=== PATIENT | male | born 1965 | race Caucasian/White ===

== ENCOUNTER 2016-07-08 15:47 | Inpatient (IN) | payer MEDICARE, OTHER, MEDICAID ==
[~2016-07-08] VITALS: Ht 172.7 cm; Wt 116.0 kg
--- NOTE | 2016-07-10 07:51 | HP ---
ADMIT: 07/08/2016 RM/LOC: 433 [facility] MR#: [id number] [address] [facility] [address] [place] [id number] AMYTORSTEN PETERSEN [address] [place] [address] History and Physical SEX: M AGE: 51 : 1965 DATE OF SERVICE: CHIEF COMPLAINT: Right lower extremity pain. HISTORY OF PRESENT ILLNESS: This is a 51-year-old gentleman with history of chronic back pain and HIV, presented with right lower extremity swelling and pain since last Thursday. He reported he woke up with severe pain and swelling, it got worse. He went to [facility] on Thursday, was treated with Levaquin and continued to feel worse, having increased pain and redness. On Thursday, they were able to express some pus out of it but unable to express much out since that time. He does note last week, he was crawling around in his garden quite a bit doing some planting, so he is concerned he may have contracted something that way. He is also concerned because a relative of his got a severe infection in her leg and needed to be in the hospital for a long time. It should be noted he has a history of MRSA infections in the past. PAST MEDICAL HISTORY: Includes cervical spinal stenosis with myelopathy, COPD, degenerative disk disease in the back with chronic spinal stenosis and radiculopathy, history of non-Hodgkin's lymphoma, GERD, HIV disease, hyperlipidemia, hypertension, osteoarthritis. He has had history of cataracts bilaterally. These have been removed. PAST SURGICAL HISTORY: Surgeries include a lymph node excision. His mother had arthritis, father had cancer, and maternal and paternal grandmothers had diabetes. His father also had heart disease and kidney disease. SOCIAL HISTORY: He is and has two roommates with his parents. Father goes to dialysis three times a week. He quit smoking about 1 year ago. He denies drug use but does drink seven cans of diet Coke per day. IMMUNIZATIONS: He had a Prevnar in 2012, Pneumovax in 2014, Tdap 2014, hepatitis A 2009. ALLERGIES: TO ATRIPLA, CELEBREX, DAPSONE, METAXALONE, SULFA, TRIMETHOPRIM, HIVES, AND CLINDAMYCIN GAVE HIM DIARRHEA AND HEADACHE. HOME MEDICATIONS: See the admission medication list. REVIEW OF SYSTEMS: Other complete review of systems obtained and negative as above. PHYSICAL EXAMINATION: VITAL SIGNS: Temp 99.5, pulse 94, respirations 20, blood pressure 141/101. GENERAL: This is a well-appearing 51-year-old gentleman. He is in no apparent distress. He is alert. He is oriented. HEENT: Pupils are equal, round, and reactive to light and accommodation. Extraocular muscles are intact. Throat clear. NECK: Supple. Trachea midline. Thyroid not palpable. ADMIT: 07/08/2016 RM/LOC: 433 [facility] MR#: [id number] [address] [place] [id number] KORY TORSTEN L [address] [place] [address] History and Physical SEX: M AGE: 51 : 1965 NECK: He has mildly diminished range of motion. HEART: Regular rate and rhythm. LUNGS: Diminished but clear bilaterally. ABDOMEN: Protuberant, soft, without any tenderness. LOWER EXTREMITIES: Left lower extremity is normal. No skin changes or edema. Right lower extremity, he has 2+ edema from his knee down. He has a 6 cm circumscribed area with nondistinct borders which is red, indurated with a central punctate scab. He does have some less red pink areas going down his santiago with increased swelling of his foot. He does have tenderness to these areas. It is warm. He does have pain with dorsiflexion of his foot. NEUROLOGIC: Cranial nerves are intact. Gait was not tested. ASSESSMENT: 1. Cellulitis. 2. Possible abscess. 3. Rule out compartment syndrome. 4. HIV. 5. Hypertension. PLAN: I will continue his same usual home medications. I will treat him with clindamycin, vancomycin, continue with Levaquin, and watch him closely in the hospital, rule out for severe sepsis. We will check a lactic acid, procalcitonin, blood cultures, and check a CMP as well. Kameron Pillai MD/ phillip JOB #: [id number] CC: Kameron Pillai, Attending Physician Kameron Pillai, Family Physician
--- NOTE | 2016-07-11 10:26 | CO ---
ADMIT: 07/08/2016 RM/LOC: [address] [place] [address] MR#: [id number] [address] [address] AMYTORSTEN PETERSEN [address] [place] [address] Consultation SEX: M AGE: 51 : 1965 DATE OF CONSULTATION: 07/09/2016 ATTENDING PHYSICIAN: Kameron Pillai CONSULTING PHYSICIAN: Raf Lee MD HISTORY OF PRESENT ILLNESS: The patient is a very pleasant, 51-year-old male, who is quite active outside with a history of HIV and chronic back pain. He was working in the garden, presented Thursday, which is about 3 days ago with some right lower swelling, pain, and redness went to a [facility]. He was placed on Levaquin and the pain continued to get worse. He was admitted just yesterday to the hospital and placed on antibiotics. Ultrasonographic workup was done of the area showing a possible subcutaneous abscess. I was consulted for possible I and D. The patient does have history of MRSA infection in the past. PAST MEDICAL HISTORY: Includes HIV, hypertension, hyperlipidemia, osteoarthritis, history of non-Hodgkin's lymphoma, cervical spine stenosis, COPD, degenerative back disease, and history of cataracts. SURGICAL HISTORY: He has had lymph node biopsy in the past. FAMILY HISTORY: Diabetes and heart disease. SOCIAL HISTORY: He is , quit smoking some time ago. Does not drink alcohol. ALLERGIES: ARE MULTIPLE LISTED IN THE CHART INCLUDING BACTRIM, SULFA, CLINDAMYCIN, CELEBREX, DAPSONE, METAXALONE, AND ATRIPLA. MEDICATIONS: Are outlined in the hospital chart. REVIEW OF SYSTEMS: Denies headaches, chest pain, or shortness of breath. No abdominal pain. He has right lateral lower leg pain and redness. ADMIT: 07/08/2016 RM/LOC: [address] [place] [address] MR#: [id number] [address] [address] TORSTEN HORN [address] [place] [address] Consultation SEX: M AGE: 51 : 1965 PHYSICAL EXAMINATION: VITAL SIGNS: He is afebrile. Vitals stable. HEART: Regular. LUNGS: Clear. ABDOMEN: Soft, nondistended, and nontender. No peripheral edema. EXTREMITIES: The lateral aspect of his right lower leg, he has an area of induration, swelling, and cellulitis with a mild amount of fluctuance underneath an area that has a small scab at the very apex middle portion of this lesion. ASSESSMENT AND PLAN: The patient is a 51-year-old with right lower leg cellulitis abscess. I will plan on bedside I and D. Raf Lee MD/ phillip JOB #: [id number] CC: Kameron Pillai, Attending Physician Kameron Pillai, Family Physician
--- NOTE | 2016-07-11 10:26 | OR ---
ADMIT: 07/08/2016 RM/LOC: [address] [facility] MR#: [id number] [address] [address] AMYTORSTEN PETERSEN [address] [place] [address] Operative/Delivery Room Report SEX: M AGE: 51 : 1965 SURGERY DATE: 07/09/2016 SURGEON: Raf Lee MD Torsten has a right lower leg cellulitis abscess on the lateral aspect of his lower leg. I prepped this with alcohol using an 18-gauge needle as I could not find an #11 blade. I was able to make about a 1 cm incision of this very shallow right lower leg abscess. With pressure, able to remove a fair amount of purulent material. After expressing this, the exudate was now bloody after we removed the purulent material. Dressed the wound with 4 x 4 gauze. The patient tolerated the procedure without difficulty, and will be followed while he is in the hospital. Raf Lee MD/ phillip JOB #: [id number] CC: Kameron Pillai, Attending Physician Kameron Pillai, Family Physician
[2016-07-15] MEDS ORDERED: GENVOYA TABLET1 EACH PO (10:32)
[2016-07-15] MEDS ORDERED: DESIPRAMINE HC100 MG PO (10:32)
[2016-07-15] MEDS ORDERED: FENOFIBRATE160 MG PO (10:32)
[2016-07-15] MEDS ORDERED: NORVASC2.5 MG PO (10:32)
[2016-07-15] MEDS ORDERED: CRESTOR5 MG PO (10:33)
[2016-07-15] MEDS ORDERED: SPIRIVA18 MCG IH (10:33)
[2016-07-15] MEDS ORDERED: NEURONTIN DPS600 MG PO (10:33)
[2016-07-15] MEDS ORDERED: METOPROLOL TART50 MG PO (10:33)
[2016-07-15] MEDS ORDERED: PROAIR RESPICL90 MCG IH (10:34)
[2016-07-15] MEDS ORDERED: PROVENTIL2.5 MG/3 M IH (10:34)
[2016-07-15] MEDS ORDERED: PEPCID DPS20 MG PO (10:35)
[2016-07-15] MEDS ORDERED: LEVAQUIN DPS500 MG PO (10:35)
[2016-07-15] MEDS ORDERED: VANCOCIN-DPS1 GM IV (10:36)
--- NOTE | 2016-07-22 06:50 | DS ---
ADMIT: 07/08/2016 RM/LOC: [address] [facility] MR#: [id number] [address] [address] KORYCARLINEISADORA Duncan [address] [place] [address] General Discharge Summary SEX: M AGE: 51 : 1965 ADMISSION DATE: 07/08/2016 DISCHARGE DATE: 07/14/2016 FINAL DIAGNOSES: 1. Right lower extremity cellulitis. 2. Abscess concern for compartment syndrome. 3. Human immunodeficiency virus. 4. Right lower extremity swelling and pain. REASON FOR ADMISSION: A 51-year-old gentleman, presented to clinic with right lower extremity swelling and pain and redness that has been getting worse despite being treated with Levaquin for the previous 3 days, therefore, he was admitted. HOSPITAL COURSE: He was admitted and placed on IV vancomycin, clindamycin and continued on his Levaquin. He had a fluctuant area, which was ultrasounded showing an area that looked like an abscess. Consult from Surgery was obtained, and they I and D'ed this and expressed a large amount of purulent material from this. Continued to be quite red and painful and swollen for the following few days. He kept the leg elevated and it gradually did improve and was less and less painful. By the day of discharge, it looked like he was going to need some long-term IV antibiotics with vancomycin, so this was set up. Culture was never obtained from the wound drainage, so we treated for presumed MRSA given his past history of MRSA. DISCHARGE MEDICATIONS: 1. Crestor 5 mg daily. 2. Levaquin 500 mg x11 more days. 3. Lopressor 50 mg b.i.d. 4. Neurontin 1200 mg t.i.d. 5. Norpramin 100 mg at bedtime. ADMIT: 07/08/2016 RM/LOC: [address] [facility] MR#: [id number] [address] [facility] [address] [place] [phone] TORSTEN HORN [address] [place] [address] General Discharge Summary SEX: M AGE: 51 : 1965 6. Norvasc 2.5 mg daily. 7. Pepcid 20 mg daily. 8. Genvoya 1 pill daily. 9. Fenofibrate 200 mg daily. 10.Spiriva 1 puff daily. 11.Vancomycin 1.5 g q.12 hours. 12.He will continue on his p.r.n. Proventil. 13.He will hold his sulindac and Protonix for now as well as he will hold his fish oil. DISCHARGE INSTRUCTIONS: Keep right lower extremity elevated, regular diet, follow up with me in 1 week's time. Kameron Pillai MD/ phillip JOB #: [id number] CC: Kameron Pillai MD, Attending Physician Kameron Pillai MD, Family Physician
== END 2016-07-14 12:26 | disposition home or self-care (01) | DRG 602 ==
LOC: 4PCU 15:47
PROVIDERS: ADMIT Internal Medicine
PROC: 0Y9H3ZZ Drainage of Right Lower Leg, Percutaneous Approach (ICD-10-PCS; principal; 2016-07-09)
DX: L02.415 Cutaneous abscess of right lower limb (principal); B20 Human immunodeficiency virus [HIV] disease; M79.A21 Nontraumatic compartment syndrome of right lower extremity; I10 Essential (primary) hypertension; L03.115 Cellulitis of right lower limb; M48.02 Spinal stenosis, cervical region; G89.29 Other chronic pain; M54.9 Dorsalgia, unspecified; J44.9 Chronic obstructive pulmonary disease, unspecified; B95.62 Methicillin resistant Staphylococcus aureus infection as the cause of diseases classified elsewhere; K21.9 Gastro-esophageal reflux disease without esophagitis; E78.5 Hyperlipidemia, unspecified; M19.90 Unspecified osteoarthritis, unspecified site; Z87.891 Personal history of nicotine dependence; Z85.72 Personal history of non-Hodgkin lymphomas

== ENCOUNTER → 2016-07-31 | Outpatient (CLI) | payer MEDICARE, OTHER, MEDICAID ==
[~2016-07-31] MED LIST: CRESTOR5 MG PO; DESIPRAMINE HC100 MG PO; FENOFIBRATE160 MG PO; GENVOYA TABLET1 EACH PO; LEVAQUIN DPS500 MG PO; METOPROLOL TART50 MG PO; NEURONTIN DPS600 MG PO; NORVASC2.5 MG PO; PEPCID DPS20 MG PO; PROAIR RESPICL90 MCG IH; PROVENTIL2.5 MG/3 M IH; SPIRIVA18 MCG IH; VANCOCIN-DPS1 GM IV
== END | disposition home or self-care (01) ==
LOC: RAD.S 13:06
DX: M51.36 Other intervertebral disc degeneration, lumbar region (principal); M50.00 Cervical disc disorder with myelopathy, unspecified cervical region; M47.12 Other spondylosis with myelopathy, cervical region; M47.896 Other spondylosis, lumbar region; M47.897 Other spondylosis, lumbosacral region; M54.5 Low back pain